=== PATIENT | female | born 1985 | race African-American/Black ===

== ENCOUNTER 2017-11-23 08:32 | Inpatient (IN) | payer OTHER ==
[2017-11-23 09:03] VITALS: BMI 30.7
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
[2017-11-23] MEDS ORDERED: NICOTINE POLACRILEX 2 MG GUM BUC PRN (10:18)
[2017-11-23] MEDS ORDERED: chlordiazePOXIDE HCL 25 MG CAPSULE PO PRN (10:18)
[2017-11-23] MEDS ORDERED: MAGNESIUM HYDROX 2400MG/30ML ORAL SUSPENSION 30 ML CUP PO PRN (10:18)
[2017-11-23] MEDS ORDERED: guaiFENesin/D-METHORPHAN HB 10 ML UNIT-DOSE CUPS PO PRN (10:18)
[2017-11-23] MEDS ORDERED: IBUPROFEN 400 MG TABLET (FP) PO PRN (10:18)
[2017-11-23] MEDS ORDERED: MENTHOL/PHENOL 1 EACH UD MM PRN (10:18)
[2017-11-23] MEDS ORDERED: P-EPHED 60MG/TRIPROLIDI 2.5MG TABLET PO PRN (10:18)
[2017-11-23] MEDS ORDERED: hydrOXYzine PAMOATE 25 MG CAPSULE (FP) PO PRN (10:18)
[2017-11-23] MEDS ORDERED: ACETAMINOPHEN 325 MG TABLET (FP) PO PRN (10:18)
[2017-11-23] MEDS ORDERED: MAG HYDROX/AL HYDROX/SIMETH 30 ML UNIT-DOSE CUP PO PRN (10:18)
[2017-11-23] MEDS ORDERED: MAGNESIUM CITRATE 300 ML BOTTLE PO PRN (10:18)
[2017-11-23] MEDS ORDERED: LOPERAMIDE HCL 2 MG CAPSULE PO PRN (10:18)
[2017-11-23] MEDS ORDERED: COLLOIDAL OATMEAL 1 BAR EACH TP PRN (11:46)
[2017-11-23] MEDS ORDERED: chlordiazePOXIDE HCL 25 MG CAPSULE PO ONE (12:00)
[2017-11-23] MEDS: chlordiazePOXIDE HCL 25 MG CAPSULE PO SCH ×3 (12:32→22:46)
[2017-11-23] MEDS: LABETALOL HCL 100 MG TABLET (FP) PO SCH (13:07)
--- NOTE | 2017-11-23 15:41 | EKG ---
Test Reason : Blood Pressure : / mmHG Vent. Rate : 090 BPM Atrial Rate : 090 BPM P-R Int : 148 ms QRS Dur : 088 ms QT Int : 364 ms P-R-T Axes : 071 052 066 degrees QTc Int : 445 ms NORMAL SINUS RHYTHM POSSIBLE LEFT ATRIAL ENLARGEMENT BORDERLINE ECG NO PREVIOUS ECGS AVAILABLE Confirmed by MD Rocco, Ricardo ([id number]) on 11/23/2017 3:40:45 PM Referred By: Confirmed By:Ricardo Valiente MD
[2017-11-23 18:06] LABS: URINE APPEARANCE CLEAR; URINE BILIRUBIN NEGATIVE (<2.0 mg/dL); URINE COLOR YELLOW; URINE GLUCOSE (UA) NEGATIVE (NEGATIVE); URINE KETONE 2+ (NEGATIVE); URINE LEUK ESTERASE NEGATIVE (NEGATIVE); URINE NITRITE NEGATIVE (NEGATIVE)
[2017-11-23 18:10] LABS: URINE PROTEIN 1+ (NEGATIVE)
[2017-11-23 18:12] LABS: EPI CELLS RARE /HPF (FEW); URINE HYALINE CAST 1 /lpf; URINE MUCUS RARE
[2017-11-23] MEDS ORDERED: MELATONIN 5 MG TABLETS PO PRN (22:00)
[2017-11-23] MEDS: THIAMINE HCL 100 MG TABLET (FP) PO SCH (22:46)
[2017-11-24] MEDS: chlordiazePOXIDE HCL 25 MG CAPSULE PO SCH ×4 (07:44→23:22)
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
[2017-11-24 10:20] LABS: HEMATOCRIT 37.3 % (32.4-45.2); HEMOGLOBIN 12.4 GM/dL (10.7-15.3); MCHC 33.3 g/dl (32.0-36.0); MEAN CELL VOLUME 99.3 fl (80-96); MEAN PLT VOLUME 8.9 fl (7.5-11.1); PLATELET COUNT 171 K/MM3 (134-434); RBC 3.76 M/mm3 (3.60-5.2)
[2017-11-24 10:39] LABS: ALBUMIN 3.4 g/dl (3.4-5.0); ALK PHOS 77 U/L (45-117); ANION GAP 11 MMOL/L (8-16); BLOOD UREA NITROGEN 10 mg/dL (7-18); CALCIUM 8.5 mg/dL (8.5-10.1); CHLORIDE 104 mmol/L (98-107); CO2 27 mmol/L (21-32); CREATININE 0.6 mg/dL (0.55-1.3); GLUCOSE,RANDOM 103 mg/dL (74-106); SGOT/AST 143 U/L (15-37); SGPT/ALT 100 U/L (13-61); SODIUM 142 mmol/L (136-145); TOT PROT 6.4 g/dl (6.4-8.2)
[2017-11-24] MEDS: LABETALOL HCL 100 MG TABLET (FP) PO SCH (10:40)
[2017-11-24] MEDS: PRENATAL VITAMINS W/ FOLIC ACID TABLET (FP) PO SCH (10:41)
--- NOTE | 2017-11-24 15:46 | PN ---
S CIWA - CIWA Score Nausea/Vomitin-No Nausea/No Vomiting Muscle Tremors: 3 Anxiety: 3 Agitation: 3 Paroxysmal Sweats: 1-Minimal Palms Moist Orientation: 0-Oriented Tacttile Disturbances: 1-Very Mild Itch/Numbness Auditory Disturbances: 0-None Visual Disturbances: 0-None Headache: 1-Very Mild CIWA-Ar Total Score: 12 [facility] Progress Note (SOAP) Subjective: sweat tremor restlessness anxiety Objective: 11/24/17 15:47 Vital Signs Temperature 97.7 F 11/24/17 15:19 Pulse Rate 80 11/24/17 15:19 Respiratory Rate 18 11/24/17 15:19 Blood Pressure 135/92 11/24/17 15:19 O2 Sat by Pulse Oximetry (%) Laboratory Last Values WBC 3.0 K/mm3 (4.0-10.0) L 11/24/17 07:30 RBC 3.76 M/mm3 (3.60-5.2) 11/24/17 07:30 Hgb 12.4 GM/dL (10.7-15.3) 11/24/17 07:30 Hct 37.3 % (32.4-45.2) 11/24/17 07:30 MCV 99.3 fl (80-96) H 11/24/17 07:30 MCH 33.0 pg (25.7-33.7) 11/24/17 07:30 MCHC 33.3 g/dl (32.0-36.0) 11/24/17 07:30 RDW 14.0 % (11.6-15.6) 11/24/17 07:30 Plt Count 171 K/MM3 (134-434) 11/24/17 07:30 MPV 8.9 fl (7.5-11.1) 11/24/17 07:30 Sodium 142 mmol/L (136-145) 11/24/17 07:30 Potassium 3.0 mmol/L (3.5-5.1) L 11/24/17 07:30 Chloride 104 mmol/L (98-107) 11/24/17 07:30 Carbon Dioxide 27 mmol/L (21-32) 11/24/17 07:30 Anion Gap 11 MMOL/L (8-16) 11/24/17 07:30 BUN 10 mg/dL (7-18) 11/24/17 07:30 Creatinine 0.6 mg/dL (0.55-1.3) 11/24/17 07:30 Creat Clearance w eGFR > 60 (>60) 11/24/17 07:30 Random Glucose 103 mg/dL (74-106) 11/24/17 07:30 Calcium 8.5 mg/dL (8.5-10.1) 11/24/17 07:30 Total Bilirubin 1.0 mg/dL (0.2-1) 11/24/17 07:30 AST 143 U/L (15-37) H 11/24/17 07:30 ALT 100 U/L (13-61) H 11/24/17 07:30 Alkaline Phosphatase 77 U/L (45-117) 11/24/17 07:30 Total Protein 6.4 g/dl (6.4-8.2) 11/24/17 07:30 Albumin 3.4 g/dl (3.4-5.0) 11/24/17 07:30 Urine Color Yellow 11/23/17 12:02 Urine Appearance Clear 11/23/17 12:02 Urine pH 6.0 (5.0-8.0) 11/23/17 12:02 Ur Specific [place] 1.024 (1.001-1.035) 11/23/17 12:02 Urine Protein 1+ (NEGATIVE) H 11/23/17 12:02 Urine Glucose (UA) Negative (NEGATIVE) 11/23/17 12:02 Urine Ketones 2+ (NEGATIVE) H 11/23/17 12:02 Urine Blood 2+ (NEGATIVE) H 11/23/17 12:02 Urine Nitrite Negative (NEGATIVE) 11/23/17 12:02 Urine Bilirubin Negative (<2.0 mg/dL) 11/23/17 12:02 Urine Urobilinogen 2.0 mg/dL (0.2-1.0) H 11/23/17 12:02 Ur Leukocyte Esterase Negative (NEGATIVE) 11/23/17 12:02 Urine WBC (Auto) 2 /hpf (3-5) 11/23/17 12:02 Urine RBC (Auto) None /hpf (0-3) 11/23/17 12:02 Ur Epithelial Cells Rare /HPF (FEW) 11/23/17 12:02 Hyaline Casts 1 /lpf 11/23/17 12:02 Urine Mucus Rare 11/23/17 12:02 RPR Titer Nonreactive (NONREACTIVE) 11/24/17 07:30 lab noted low K+ Assessment: 11/24/17 15:49 withdrawal sx hypokalemia Plan: continue detox potassium supplement
[2017-11-24] MEDS: POTASSIUM CHLORIDE TABS 20 MEQ TABLET.ER (FP) PO SCH (23:21)
[2017-11-24] MEDS: THIAMINE HCL 100 MG TABLET (FP) PO SCH (23:22)
[2017-11-25] MEDS: chlordiazePOXIDE HCL 25 MG CAPSULE PO SCH (05:50)
[2017-11-25] MEDS: PRENATAL VITAMINS W/ FOLIC ACID TABLET (FP) PO SCH (10:32)
[2017-11-25] MEDS: chlordiazePOXIDE 5 MG CAPSULE PO SCH ×3 (10:32→22:33)
[2017-11-25] MEDS: POTASSIUM CHLORIDE TABS 20 MEQ TABLET.ER (FP) PO SCH ×2 (10:32→22:33)
[2017-11-25] MEDS: LABETALOL HCL 100 MG TABLET (FP) PO SCH (11:00)
--- NOTE | 2017-11-25 15:19 | PN ---
[facility] CIWA - CIWA Score Nausea/Vomitin-Mild Nausea/No Vomiting Muscle Tremors: 3 Anxiety: 3 Agitation: 3 Paroxysmal Sweats: No Perspiration Orientation: 0-Oriented Tacttile Disturbances: 0-None Auditory Disturbances: 0-None Visual Disturbances: 0-None Headache: 0-None Present CIWA-Ar Total Score: 10 [facility] Progress Note (SOAP) Subjective: c/o mild nausea. No vomiting. Tolerating diet. States I need to leave because I have a court date. Objective: A&O x 3. Abd soft/non-tender. Mild tremors of hands. Pacing the floors and speaking loudly. Vital Signs 11/25/17 11/25/17 09:24 13:44 Temperature 98.4 F 98.4 F Pulse Rate 78 86 Respiratory 18 18 Rate Blood Pressure 125/91 128/85 Laboratory Tests 11/23/17 11/24/17 11/24/17 12:02 07:30 07:30 WBC 3.0 L RBC 3.76 Hgb 12.4 Hct 37.3 MCV 99.3 H MCH 33.0 MCHC 33.3 RDW 14.0 Plt Count 171 MPV 8.9 Sodium 142 Potassium 3.0 L Chloride 104 Carbon Dioxide 27 Anion Gap 11 BUN 10 Creatinine 0.6 Creat Clearance w eGFR > 60 Random Glucose 103 Calcium 8.5 Total Bilirubin 1.0 AST 143 H ALT 100 H Alkaline Phosphatase 77 Total Protein 6.4 Albumin 3.4 Urine Color Yellow Urine Appearance Clear Urine pH 6.0 Ur Specific [place] 1.024 Urine Protein 1+ H Urine Glucose (UA) Negative Urine Ketones 2+ H Urine Blood 2+ H Urine Nitrite Negative Urine Bilirubin Negative Urine Urobilinogen 2.0 H Ur Leukocyte Esterase Negative Urine WBC (Auto) 2 Urine RBC (Auto) None Ur Epithelial Cells Rare Hyaline Casts 1 Urine Mucus Rare RPR Titer 11/24/17 11/25/17 07:30 07:30 WBC RBC Hgb Hct MCV MCH MCHC RDW Plt Count MPV Sodium Potassium 3.5 Chloride Carbon Dioxide Anion Gap BUN Creatinine Creat Clearance w eGFR Random Glucose Calcium Total Bilirubin AST ALT Alkaline Phosphatase Total Protein Albumin Urine Color Urine Appearance Urine pH Ur Specific [place] Urine Protein Urine Glucose (UA) Urine Ketones Urine Blood Urine Nitrite Urine Bilirubin Urine Urobilinogen Ur Leukocyte Esterase Urine WBC (Auto) Urine RBC (Auto) Ur Epithelial Cells Hyaline Casts Urine Mucus RPR Titer Nonreactive Labs reviewed. Assessment: Withdrawal symptoms Increased anxiety Plan: Continue to detox Encouraged to speak w/ counselor about court date and situation w/ daughter.
[2017-11-25] MEDS: THIAMINE HCL 100 MG TABLET (FP) PO SCH (22:33)
[2017-11-26] MEDS: chlordiazePOXIDE 5 MG CAPSULE PO SCH (05:54)
[2017-11-26] MEDS ORDERED: cloNIDine HCL 0.1 MG TABLET PO ONE ×2 (06:59→17:16)
--- NOTE | 2017-11-26 07:01 | PN ---
S Progress Note Note: Patient's blood pressure is B/P 150/103. Patient is asymptomatic Vital Signs Temperature 97.7 F 11/26/17 06:58 Pulse Rate 74 11/26/17 06:58 Respiratory Rate 18 11/26/17 06:58 Blood Pressure 150/103 H 11/26/17 06:58 O2 Sat by Pulse Oximetry (%) Action: Clonidine 0.1mg tablet oral ordered
[2017-11-26] MEDS: LABETALOL HCL 100 MG TABLET (FP) PO SCH (10:30)
[2017-11-26] MEDS: POTASSIUM CHLORIDE TABS 20 MEQ TABLET.ER (FP) PO SCH (10:30)
[2017-11-26] MEDS: PRENATAL VITAMINS W/ FOLIC ACID TABLET (FP) PO SCH (10:32)
[2017-11-26] MEDS: chlordiazePOXIDE HCL 10 MG CAPSULE PO SCH ×2 (10:32→16:46)
--- NOTE | 2017-11-26 11:21 | PN ---
[facility] Progress Note (SOAP) Subjective: feeling better no tremor less sweat no headache bp elevation discussed medication adherence Objective: 11/26/17 11:19 Vital Signs Temperature 97.7 F 11/26/17 09:31 Pulse Rate 88 11/26/17 09:31 Respiratory Rate 18 11/26/17 09:31 Blood Pressure 142/94 11/26/17 09:31 O2 Sat by Pulse Oximetry (%) Laboratory Last Values WBC 3.0 K/mm3 (4.0-10.0) L 11/24/17 07:30 RBC 3.76 M/mm3 (3.60-5.2) 11/24/17 07:30 Hgb 12.4 GM/dL (10.7-15.3) 11/24/17 07:30 Hct 37.3 % (32.4-45.2) 11/24/17 07:30 MCV 99.3 fl (80-96) H 11/24/17 07:30 MCH 33.0 pg (25.7-33.7) 11/24/17 07:30 MCHC 33.3 g/dl (32.0-36.0) 11/24/17 07:30 RDW 14.0 % (11.6-15.6) 11/24/17 07:30 Plt Count 171 K/MM3 (134-434) 11/24/17 07:30 MPV 8.9 fl (7.5-11.1) 11/24/17 07:30 Sodium 142 mmol/L (136-145) 11/24/17 07:30 Potassium 3.5 mmol/L (3.5-5.1) 11/25/17 07:30 Chloride 104 mmol/L (98-107) 11/24/17 07:30 Carbon Dioxide 27 mmol/L (21-32) 11/24/17 07:30 Anion Gap 11 MMOL/L (8-16) 11/24/17 07:30 BUN 10 mg/dL (7-18) 11/24/17 07:30 Creatinine 0.6 mg/dL (0.55-1.3) 11/24/17 07:30 Creat Clearance w eGFR > 60 (>60) 11/24/17 07:30 Random Glucose 103 mg/dL (74-106) 11/24/17 07:30 Calcium 8.5 mg/dL (8.5-10.1) 11/24/17 07:30 Total Bilirubin 1.0 mg/dL (0.2-1) 11/24/17 07:30 AST 143 U/L (15-37) H 11/24/17 07:30 ALT 100 U/L (13-61) H 11/24/17 07:30 Alkaline Phosphatase 77 U/L (45-117) 11/24/17 07:30 Total Protein 6.4 g/dl (6.4-8.2) 11/24/17 07:30 Albumin 3.4 g/dl (3.4-5.0) 11/24/17 07:30 Urine Color Yellow 11/23/17 12:02 Urine Appearance Clear 11/23/17 12:02 Urine pH 6.0 (5.0-8.0) 11/23/17 12:02 Ur Specific [place] 1.024 (1.001-1.035) 11/23/17 12:02 Urine Protein 1+ (NEGATIVE) H 11/23/17 12:02 Urine Glucose (UA) Negative (NEGATIVE) 11/23/17 12:02 Urine Ketones 2+ (NEGATIVE) H 11/23/17 12:02 Urine Blood 2+ (NEGATIVE) H 11/23/17 12:02 Urine Nitrite Negative (NEGATIVE) 11/23/17 12:02 Urine Bilirubin Negative (<2.0 mg/dL) 11/23/17 12:02 Urine Urobilinogen 2.0 mg/dL (0.2-1.0) H 11/23/17 12:02 Ur Leukocyte Esterase Negative (NEGATIVE) 11/23/17 12:02 Urine WBC (Auto) 2 /hpf (3-5) 11/23/17 12:02 Urine RBC (Auto) None /hpf (0-3) 11/23/17 12:02 Ur Epithelial Cells Rare /HPF (FEW) 11/23/17 12:02 Hyaline Casts 1 /lpf 11/23/17 12:02 Urine Mucus Rare 11/23/17 12:02 RPR Titer Nonreactive (NONREACTIVE) 11/24/17 07:30 lab noted 11/26/17 11:20 K+ rich food Assessment: 11/26/17 11:20 mild withdrawal sx Plan: medically supervised detox
[2017-11-26 13:19] VITALS: BP 136/98; PULSE 68; TEMP 97.8
--- NOTE | 2017-11-26 13:26 | DS ---
[facility] Detox Discharge Summary Admission Date: 11/23/17 Discharge Date: 11/26/17 - History Present History: Alcohol Dependence Additional Comments: 32 years old female admitted on 11/23/17 with alcohol withdrawal sx feeling well denies alcohol withdrawal sx wants to begin rehab today case discuss with counselor that bed is available and the patient wants to start rehab process - Physical Exam Results Vital Signs: Vital Signs Temperature 97.8 F 11/26/17 13:19 Pulse Rate 68 11/26/17 13:19 Respiratory Rate 18 11/26/17 13:19 Blood Pressure 136/98 11/26/17 13:19 O2 Sat by Pulse Oximetry (%) Pertinent Admission Physical Exam Findings: alcohol wtihdrawal sx Vital Signs Temperature 97.8 F 11/26/17 13:19 Pulse Rate 68 11/26/17 13:19 Respiratory Rate 18 11/26/17 13:19 Blood Pressure 136/98 11/26/17 13:19 O2 Sat by Pulse Oximetry (%) Laboratory Last Values WBC 3.0 K/mm3 (4.0-10.0) L 11/24/17 07:30 RBC 3.76 M/mm3 (3.60-5.2) 11/24/17 07:30 Hgb 12.4 GM/dL (10.7-15.3) 11/24/17 07:30 Hct 37.3 % (32.4-45.2) 11/24/17 07:30 MCV 99.3 fl (80-96) H 11/24/17 07:30 MCH 33.0 pg (25.7-33.7) 11/24/17 07:30 MCHC 33.3 g/dl (32.0-36.0) 11/24/17 07:30 RDW 14.0 % (11.6-15.6) 11/24/17 07:30 Plt Count 171 K/MM3 (134-434) 11/24/17 07:30 MPV 8.9 fl (7.5-11.1) 11/24/17 07:30 Sodium 142 mmol/L (136-145) 11/24/17 07:30 Potassium 3.5 mmol/L (3.5-5.1) 11/25/17 07:30 Chloride 104 mmol/L (98-107) 11/24/17 07:30 Carbon Dioxide 27 mmol/L (21-32) 11/24/17 07:30 Anion Gap 11 MMOL/L (8-16) 11/24/17 07:30 BUN 10 mg/dL (7-18) 11/24/17 07:30 Creatinine 0.6 mg/dL (0.55-1.3) 11/24/17 07:30 Creat Clearance w eGFR > 60 (>60) 11/24/17 07:30 Random Glucose 103 mg/dL (74-106) 11/24/17 07:30 Calcium 8.5 mg/dL (8.5-10.1) 11/24/17 07:30 Total Bilirubin 1.0 mg/dL (0.2-1) 11/24/17 07:30 AST 143 U/L (15-37) H 11/24/17 07:30 ALT 100 U/L (13-61) H 11/24/17 07:30 Alkaline Phosphatase 77 U/L (45-117) 11/24/17 07:30 Total Protein 6.4 g/dl (6.4-8.2) 11/24/17 07:30 Albumin 3.4 g/dl (3.4-5.0) 11/24/17 07:30 Urine Color Yellow 11/23/17 12:02 Urine Appearance Clear 11/23/17 12:02 Urine pH 6.0 (5.0-8.0) 11/23/17 12:02 Ur Specific [place] 1.024 (1.001-1.035) 11/23/17 12:02 Urine Protein 1+ (NEGATIVE) H 11/23/17 12:02 Urine Glucose (UA) Negative (NEGATIVE) 11/23/17 12:02 Urine Ketones 2+ (NEGATIVE) H 11/23/17 12:02 Urine Blood 2+ (NEGATIVE) H 11/23/17 12:02 Urine Nitrite Negative (NEGATIVE) 11/23/17 12:02 Urine Bilirubin Negative (<2.0 mg/dL) 11/23/17 12:02 Urine Urobilinogen 2.0 mg/dL (0.2-1.0) H 11/23/17 12:02 Ur Leukocyte Esterase Negative (NEGATIVE) 11/23/17 12:02 Urine WBC (Auto) 2 /hpf (3-5) 11/23/17 12:02 Urine RBC (Auto) None /hpf (0-3) 11/23/17 12:02 Ur Epithelial Cells Rare /HPF (FEW) 11/23/17 12:02 Hyaline Casts 1 /lpf 11/23/17 12:02 Urine Mucus Rare 11/23/17 12:02 RPR Titer Nonreactive (NONREACTIVE) 11/24/17 07:30 lab noted - Treatment Hospital Course: Detox Protocol Followed, Detoxed Safely, Responded well, Discharged Condition Good, Rehab Referral Accepted Patient has Accepted a Rehab Referral to: [facility] - Medication Discharge Medications: Ambulatory Orders Labetalol HCl 50 mg PO DAILY #30 tablet 11/26/17 - Diagnosis (1) Alcohol dependence with uncomplicated withdrawal Current Visit: Yes Status: Acute (2) Eczema Current Visit: Yes Status: Chronic Qualifiers: Eczema type: unspecified Qualified Code(s): L30.9 - Dermatitis, unspecified (3) HTN (hypertension) Current Visit: Yes Status: Chronic Qualifiers: Hypertension type: essential hypertension Qualified Code(s): I10 - Essential (primary) hypertension (4) Nicotine dependence Current Visit: Yes Status: Acute Qualifiers: Nicotine product type: cigarettes Substance use status: in withdrawal Qualified Code(s): F17.213 - Nicotine dependence, cigarettes, with withdrawal - AMA Did Patient Leave Against Medical Advice: No
--- NOTE | 2017-11-26 17:17 | PN ---
[facility] Progress Note Note: BP 143/101 asymptomatic one time dose clonidine 0.1 mg in crease po fluids low sodium diet continue to monitor
== END 2017-11-26 18:10 | disposition other institution (70) | DRG 775 ==
LOC: YASAS 08:32 → Y6N 10:44
PROC: HZ2ZZZZ Detoxification Services for Substance Abuse Treatment (ICD-10-PCS; principal; 2017-11-23)
DX: F10.230 Alcohol dependence with withdrawal, uncomplicated (principal); F17.213 Nicotine dependence, cigarettes, with withdrawal; F10.24 Alcohol dependence with alcohol-induced mood disorder; F32.9 Major depressive disorder, single episode, unspecified; I10 Essential (primary) hypertension; L30.9 Dermatitis, unspecified; L40.9 Psoriasis, unspecified; E66.9 Obesity, unspecified; Z68.30 Body mass index [BMI] 30.0-30.9, adult; Z91.018 Allergy to other foods
CPT/HCPCS: 36415; 80053; 81003; 81015; 84132; 85027; 86593; 93005; 93010; J0735

== ENCOUNTER 2017-12-05 17:19 | Emergency (ER) | payer OTHER ==
--- NOTE | 2017-12-05 17:42 | PDOC ---
Rapid Medical Evaluation Chief Complaint: Vaginal Sxs Time Seen by Provider: 12/05/17 17:41 Medical Evaluation: Allergies Allergy/AdvReac Type Severity Reaction Status Date / Time No Known Drug Allergies Allergy Verified 12/05/17 17:40 ALL FRUITS EXCEPT BANANA Allergy Intermediate Swelling Uncoded 12/05/17 17:40 PEANUTS Allergy Intermediate Swelling Uncoded 12/05/17 17:40 12/05/17 17:41 CC: Vaginal D/C HPI: Pt is a 32 YO female who has had 3 days of vaginal discharge. I have performed a brief in- person evaluation of this patient. Pertinent Physical Findings: Skin: Clear Lungs: Clear Heart: RRR Neuro: Alert Psych: Appropriate affect I have ordered: UA and UHCG. Pt will need wet prep and STD testing. The patient will proceed to: Main ED for further evaluation. Discharge Disposition - Diagnosis Vaginal discharge - Referrals - Patient Instructions - Post Discharge Activity
[2017-12-05 17:43] VITALS: BP 142/90; PULSE 67; TEMP 98.3; BMI 29.8
[2017-12-05 18:05] LABS: URINE APPEARANCE CLEAR; URINE BILIRUBIN NEGATIVE (<2.0 mg/dL); URINE COLOR LTYELLOW; URINE GLUCOSE (UA) NEGATIVE (NEGATIVE); URINE KETONE NEGATIVE (NEGATIVE); URINE LEUK ESTERASE 3+ (NEGATIVE); URINE NITRITE NEGATIVE (NEGATIVE); URINE PROTEIN NEGATIVE (NEGATIVE); URINE UROBILINOGEN NEGATIVE mg/dL (0.2-1.0)
[2017-12-05 18:06] LABS: HCG,QUALITATIVE URINE Negative
[2017-12-05 18:20] LABS: EPI CELLS RARE /HPF (FEW); URINE MUCUS RARE
[2017-12-05] MEDS ORDERED: DOXYCYCLINE HYCLATE 100 MG CAPSULE PO ONE ×2 (19:01→19:30)
--- NOTE | 2017-12-05 19:12 | PDOC ---
History of Present Illness - General Chief Complaint: Vaginal Sxs Stated Complaint: VAGINAL DISCHARGE Time Seen by Provider: 12/05/17 17:41 Past History - Past Medical History Allergies/Adverse Reactions: Allergies Allergy/AdvReac Type Severity Reaction Status Date / Time No Known Drug Allergies Allergy Verified 12/05/17 17:40 ALL FRUITS EXCEPT BANANA Allergy Intermediate Swelling Uncoded 12/05/17 17:40 PEANUTS Allergy Intermediate Swelling Uncoded 12/05/17 17:40 Home Medications: Ambulatory Orders Labetalol HCl 50 mg PO DAILY #30 tablet 11/26/17 Doxycycline Hyclate 100 mg PO BID #14 tablet 12/05/17 metroNIDAZOLE 0.75% VAG. GEL [Metrogel 0.75% Vaginal Gel -] 1 applic VG BID #1 tube 12/05/17 Asthma: No Cancer: No Cardiac Disorders: No CVA: No COPD: No Diabetes: No GI Disorders: No Disorders: No HTN: Yes (ON MEDS.) Kidney Stones: No Liver Disease: No Seizures: No Thyroid Disease: No - Surgical History Abdominal Surgery: No Appendectomy: No Cardiac Surgery: No Cholecystectomy: No Lung Surgery: No Neurologic Surgery: No Orthopedic Surgery: No - Reproductive History PID: No - Immunization History Immunization Up to Date: Yes - Suicide/Smoking/Psychosocial Hx Smoking History: Never smoked Have you smoked in the past 12 months: Yes Number of Cigarettes Smoked Daily: 3 'Breaking Loose' booklet given: 11/23/17 (give on floor) Hx Alcohol Use: No Drug/Substance Use Hx: No Substance Use Type: Alcohol Hx Substance Use Treatment: Yes (this is her first inpatient treatment,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) Review of Systems - Review of Systems Able to Perform ROS?: Yes Comments:: 12/05/17 19:15 CONSTITUTIONAL: Absent: fever, chills, diaphoresis, generalized weakness, malaise, loss of appetite HEENT: Absent: rhinorrhea, nasal congestion, throat pain, throat swelling, difficulty swallowing, mouth swelling, ear pain, eye pain, visual Changes CARDIOVASCULAR: Absent: chest pain, loss of consciousness, palpitations, irregular heart rate, peripheral edema RESPIRATORY: Absent: cough, shortness of breath, dyspnea with exertion, orthopnea, wheezing, stridor, hemoptysis GASTROINTESTINAL: Absent: abdominal pain, abdominal distension, nausea, vomiting, diarrhea, constipation, melena, hematochezia GENITOURINARY: Absent: dysuria, frequency, urgency, hesitancy, hematuria, flank pain, genital pain MUSCULOSKELETAL: Absent: myalgia, arthralgia, joint swelling SKIN: Absent: rash, itching, pallor HEMATOLOGIC/IMMUNOLOGIC: Absent: easy bleeding, easy bruising, lymphadenopathy, frequent infections ENDOCRINE: Absent: unexplained weight gain, unexplained weight loss, heat intolerance, cold intolerance NEUROLOGIC: Absent: headache, focal weakness or paresthesias, dizziness, unsteady gait, seizure, mental status changes, bladder or bowel incontinence PSYCHIATRIC: Absent: anxiety, depression, suicidal or homicidal ideation, hallucinations. Is the patient limited Faroese proficient: No *Physical Exam - Vital Signs Last Vital Signs Temp Pulse Resp BP Pulse Ox 98.3 F 67 16 142/90 100 12/05/17 17:41 12/05/17 17:41 12/05/17 17:41 12/05/17 17:41 12/05/17 17:41 - Physical Exam Comments: 12/05/17 19:15 GENERAL: Well developed, well nourished. Awake and alert. No acute distress. HEENT: Normocephalic, atraumatic. PERRLA, EOMI. No conjunctival pallor. Sclera are non- icteric. Moist mucous membranes. Oropharynx is clear. NECK: Supple. Full ROM. No JVD. Carotid pulses 2+ and symmetric, without bruits. No thyromegaly. No lymphadenopathy. CARDIOVASCULAR: Regular rate and rhythm. No murmurs, rubs, or gallops. Distal pulses are 2+ and symmetric. PULMONARY: No evidence of respiratory distress. Lungs clear to auscultation bilaterally. No wheezing, rales or rhonchi. ABDOMINAL: Soft. Non-tender. Non-distended. No rebound or guarding. No organomegaly. Normoactive bowel sounds. MUSCULOSKELETAL Normal range of motion at all joints. No bony deformities or tenderness. No CVA tenderness. EXTREMITIES: No cyanosis. No clubbing. No edema. No calf tenderness. SKIN: Warm and dry. Normal capillary refill. No rashes. No jaundice. NEUROLOGICAL: Alert, awake, appropriate. Cranial nerves 2-12 intact. No deficits to light touch and temperature in face, upper extremities and lower extremities. No motor deficits in the in face, upper extremities and lower extremities. Normoreflexic in the upper and lower extremities. Normal speech. Toes are down- going bilaterally. Gait is normal without ataxia. PSYCHIATRIC: Cooperative. Good eye contact. Appropriate mood and affect. Pelvic: External genitalia normal without lesions. Vaginal vault is clear without blood or discharge. Cervix is long and closed. No cervical motion tenderness. Uterus is nontender and normal in size. Adnexa are nontender and without masses. ED Treatment Course - ADDITIONAL ORDERS Additional order review: Laboratory Results 12/05/17 17:45 Urine Color Ltyellow Urine Appearance Clear Urine pH 6.0 Ur Specific [place] 1.024 Urine Protein Negative Urine Glucose (UA) Negative Urine Ketones Negative Urine Blood Negative Urine Nitrite Negative Urine Bilirubin Negative Urine Urobilinogen Negative Ur Leukocyte Esterase 3+ H Urine WBC (Auto) 21 Urine RBC (Auto) 15 Ur Epithelial Cells Rare Urine Mucus Rare Urine HCG, Qual Negative *DC/Admit/Observation/Transfer Diagnosis at time of Disposition: Bacterial vaginosis, Exposure to STD - Discharge Dispostion Condition at time of disposition: Stable Decision to Admit order: No - Prescriptions Prescriptions: Doxycycline Hyclate 100 mg PO BID #14 tablet metroNIDAZOLE 0.75% VAG. GEL [Metrogel 0.75% Vaginal Gel -] 1 applic VG BID #1 tube - Referrals Referrals: Varinder Cason MD [Staff Physician] - - Patient Instructions Printed Discharge Instructions: DI for Vaginal Discharge, DI for Vaginal Itching Additional Instructions: You were evaluated for Vaginal discharge You were treated for possible STD exposure Please take the doxycycline twice a day for one week Also use the metronidazole cream in the vaginal canal twice a day for one week Avoid creams to the area or douching Follow up with operations planner if your symptoms do not improve Return to the ED if you have worsening pain, itching, fevers, or if you have any changes in your symptoms - Post Discharge Activity
== END 2017-12-05 19:34 | disposition other institution (70) ==
LOC: JERFT 17:19
DX: N76.0 Acute vaginitis (principal); B96.89 Other specified bacterial agents as the cause of diseases classified elsewhere; Z20.2 Contact with and (suspected) exposure to infections with a predominantly sexual mode of transmission; I10 Essential (primary) hypertension
CPT/HCPCS: 36415; 81003; 81015; 84703; 87070; 87205; 87491; 87591; 99281-25